=== PATIENT | female | born 1955 | race Caucasian/White ===

== ENCOUNTER 2019-12-21 13:38 | Outpatient (CLI) | payer MEDICARE, MEDICAID, SELFPAY ==
--- NOTE | 2019-12-21 14:15 | XR_ITS ---
WS: [id number] DEXA (DUAL ENERGY X-RAY ABSORPTIOMETRY) Bone mineral density was performed using a [employer] machine. HISTORY: compression fracture COMPARISON: None available. Lumbar spine BMD (L1-L4): 1.146 g/cm2 T score: -0.3 Z score: 1.3 Total hip BMD: Left: 0.900 g/cm2. T score: -0.9 Z score: 0.4 Right: 0.864 g/cm2. T score: -1.1 Z score: 0.1 10 year probability of a major osteoporotic fracture is 20%. XR/XR DEXA axial skeleton* [id number] IMPRESSION: OSTEOPENIA based upon the WHO classification for females.
== END 2019-12-21 13:39 | disposition home or self-care (01) ==
LOC: RADWPI 13:44
PROVIDERS: Family Provider Nurse Practitioner Family; PCP Nurse Practitioner Family; Visit Provider Nurse Practitioner Family
DX: M48.50XA Collapsed vertebra, not elsewhere classified, site unspecified, initial encounter for fracture (principal); M85.89 Other specified disorders of bone density and structure, multiple sites
CPT/HCPCS: 77080

== ENCOUNTER 2019-12-28 06:37 | Outpatient (CLI) | payer MEDICARE, MEDICAID, SELFPAY ==
--- NOTE | 2019-12-28 07:15 | MR_ITS ---
WS: [id number] MRI THORACIC SPINE HISTORY: S22.060D Wedge compression fracture of T7-T8 vertebra, COMPARISON: None available. TECHNIQUE: Multiplanar sequences are performed in sagittal and axial planes. Prior anterior cervical fusion at C5-6. There is a very small amount of marrow edema along the superi or endplate of T10. There is a concave defect in the superior endplate of T10. No retropulsion of the vertebral body. Very slight anterior wedging of approximately 10%. T1-2: Very small central disc protrusion without stenosis. T2-3: Mild RIGHT facet joint arthritis with encroachment into the sac but no stenosis. T3-4: Normal. T4-5: Normal. T5-6: Normal. T6-7: Normal. T7-8: Small LEFT paracentral disc protrusion without stenosis. T8-9: Normal. T9-10: Very mild annular disc bulging with facet arthritis. There is mild narrowing of the central c anal and foramen. T10-11: Mild facet joint arthritis and mild annular disc bulging. Mild bilateral foraminal stenosis. T11-12: Normal. Suspected there are RIGHT subclavian artery. MR/MR thoracic spin wo con* [id number] IMPRESSION: 1. Mild anterior wedging of T10, 10% without retropulsion. Very small amount o f marrow edema along the superior endplate. 2. 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
== END 2019-12-28 06:38 | disposition home or self-care (01) ==
LOC: RADSHAW 06:40
PROVIDERS: PCP Nurse Practitioner Family; Visit Provider Nurse Practitioner Family
DX: S22.060A Wedge compression fracture of T7-T8 vertebra, initial encounter for closed fracture (principal); M48.04 Spinal stenosis, thoracic region; S22.070A Wedge compression fracture of T9-T10 vertebra, initial encounter for closed fracture; X58.XXXA Exposure to other specified factors, initial encounter; M51.34 Other intervertebral disc degeneration, thoracic region; M46.84 Other specified inflammatory spondylopathies, thoracic region
CPT/HCPCS: 72146

== ENCOUNTER → 2020-02-15 11:43 | Outpatient (BNVA) | payer MEDICARE, MEDICAID, SELFPAY | PROVIDERS: PCP Nurse Practitioner Family; Visit Provider Internal Medicine Rheumatology | DX: M32.19 Other organ or system involvement in systemic lupus erythematosus (principal); Z79.899 Other long term (current) drug therapy; R76.8 Other specified abnormal immunological findings in serum; M85.80 Other specified disorders of bone density and structure, unspecified site; S22.060D Wedge compression fracture of T7-T8 vertebra, subsequent encounter for fracture with routine healing; Z90.2 Acquired absence of lung [part of]; Z85.118 Personal history of other malignant neoplasm of bronchus and lung; Z87.891 Personal history of nicotine dependence; X58.XXXD Exposure to other specified factors, subsequent encounter; M19.90 Unspecified osteoarthritis, unspecified site | CPT/HCPCS: 36415; 80076; 81001; 82306; 82565; 82570; 84156; 85025; 85651; 86140; 86160; 99214 ==

== ENCOUNTER → 2020-05-27 11:33 | Outpatient (BNVA) | payer MEDICARE, MEDICAID, SELFPAY | PROVIDERS: PCP Nurse Practitioner Family; Visit Provider Nurse Practitioner Family | DX: E07.9 Disorder of thyroid, unspecified (principal); R06.00 Dyspnea, unspecified | CPT/HCPCS: 84443 ==

== ENCOUNTER → 2020-05-29 09:45 | Outpatient (BNVA) | payer MEDICARE, MEDICAID, SELFPAY | PROVIDERS: PCP Nurse Practitioner Family; Visit Provider Internal Medicine Rheumatology | DX: M32.19 Other organ or system involvement in systemic lupus erythematosus (principal); Z79.899 Other long term (current) drug therapy; M85.80 Other specified disorders of bone density and structure, unspecified site; S22.060D Wedge compression fracture of T7-T8 vertebra, subsequent encounter for fracture with routine healing; M15.9 Polyosteoarthritis, unspecified; M47.816 Spondylosis without myelopathy or radiculopathy, lumbar region; M48.02 Spinal stenosis, cervical region; C34.31 Malignant neoplasm of lower lobe, right bronchus or lung; Z90.2 Acquired absence of lung [part of]; J44.9 Chronic obstructive pulmonary disease, unspecified; Z87.891 Personal history of nicotine dependence; X58.XXXD Exposure to other specified factors, subsequent encounter | CPT/HCPCS: 36415; 80076; 81001; 82565; 82570; 84156; 85025; 85651; 86140; 99214 ==

== ENCOUNTER 2020-05-29 10:53 | Outpatient (CLI) | payer MEDICARE, MEDICAID, SELFPAY | END 2020-05-29 10:54 | disposition home or self-care (01) | LOC: RADWPI 10:58 | PROVIDERS: PCP Nurse Practitioner Family; Visit Provider Nurse Practitioner Family | DX: Z79.899 Other long term (current) drug therapy (principal); M32.19 Other organ or system involvement in systemic lupus erythematosus | CPT/HCPCS: 80076; 81001; 82565; 82570; 84156; 85025; 85651; 86140 ==

== ENCOUNTER → 2020-08-07 13:25 | Outpatient (BNVA) | payer MEDICARE, MEDICAID, SELFPAY | PROVIDERS: PCP Nurse Practitioner Family; Visit Provider Internal Medicine Rheumatology | DX: M32.19 Other organ or system involvement in systemic lupus erythematosus (principal); Z79.899 Other long term (current) drug therapy; M15.9 Polyosteoarthritis, unspecified; J44.9 Chronic obstructive pulmonary disease, unspecified; Z85.118 Personal history of other malignant neoplasm of bronchus and lung; Z90.2 Acquired absence of lung [part of]; Z87.891 Personal history of nicotine dependence | CPT/HCPCS: 99213; 99214 ==

== ENCOUNTER → 2020-12-04 09:41 | Outpatient (BNVA) | payer MEDICARE, MEDICAID, SELFPAY | PROVIDERS: PCP Nurse Practitioner Family; Visit Provider Internal Medicine Rheumatology | DX: M32.19 Other organ or system involvement in systemic lupus erythematosus (principal); M85.80 Other specified disorders of bone density and structure, unspecified site; Z79.899 Other long term (current) drug therapy; S22.060D Wedge compression fracture of T7-T8 vertebra, subsequent encounter for fracture with routine healing; Z85.118 Personal history of other malignant neoplasm of bronchus and lung; M15.9 Polyosteoarthritis, unspecified; J44.9 Chronic obstructive pulmonary disease, unspecified; Z92.21 Personal history of antineoplastic chemotherapy; Z90.2 Acquired absence of lung [part of]; Z71.89 Other specified counseling; Z87.891 Personal history of nicotine dependence; Y93.9 Activity, unspecified | CPT/HCPCS: 99214 ==

== ENCOUNTER → 2021-04-15 08:52 | Outpatient (BNVA) | payer MEDICARE, MEDICAID, SELFPAY | PROVIDERS: PCP Nurse Practitioner Family; Visit Provider Internal Medicine Rheumatology | DX: M32.19 Other organ or system involvement in systemic lupus erythematosus (principal); Z79.899 Other long term (current) drug therapy | CPT/HCPCS: 80076; 81003; 82565; 82570; 84156; 85025; 86140 ==

== ENCOUNTER → 2021-05-28 10:21 | Outpatient (BNVA) | payer MEDICAID, SELFPAY | PROVIDERS: PCP Nurse Practitioner Family; Visit Provider Internal Medicine Rheumatology | DX: M32.19 Other organ or system involvement in systemic lupus erythematosus (principal); Z79.899 Other long term (current) drug therapy; M85.80 Other specified disorders of bone density and structure, unspecified site; M15.9 Polyosteoarthritis, unspecified; J44.9 Chronic obstructive pulmonary disease, unspecified; M43.22 Fusion of spine, cervical region; M47.896 Other spondylosis, lumbar region; Z71.89 Other specified counseling | CPT/HCPCS: 99214 ==

== ENCOUNTER → 2022-03-05 10:43 | Outpatient (BNVA) | payer MEDICARE, MEDICAID, SELFPAY | PROVIDERS: PCP Nurse Practitioner Family; Visit Provider Internal Medicine Rheumatology | DX: M32.19 Other organ or system involvement in systemic lupus erythematosus (principal); Z79.899 Other long term (current) drug therapy; Z85.118 Personal history of other malignant neoplasm of bronchus and lung; Z90.2 Acquired absence of lung [part of]; M15.9 Polyosteoarthritis, unspecified; M47.896 Other spondylosis, lumbar region; M85.80 Other specified disorders of bone density and structure, unspecified site; J44.9 Chronic obstructive pulmonary disease, unspecified; Z92.21 Personal history of antineoplastic chemotherapy; Z87.891 Personal history of nicotine dependence; Z98.1 Arthrodesis status | CPT/HCPCS: 99213; 99214 ==